=== PATIENT | female | born 1990 | race Caucasian/White ===

== ENCOUNTER 2019-01-03 21:12 | Emergency (ER) | payer OTHER ==
[~2019-01-03] VITALS: Ht 154.9 cm; Wt 59.0 kg
[2019-01-03 21:30] VITALS: BP 131/82
[2019-01-03] MEDS ORDERED: SERTRALINE HCL50 MG PO (21:36)
[2019-01-03] MEDS ORDERED: CLONAZEPAM 1 MG1 M1 PO (21:36)
== END 2019-01-03 21:45 | disposition home or self-care (01) ==
LOC: M.ERS 21:12
DX: F41.9 Anxiety disorder, unspecified (principal); F17.200 Nicotine dependence, unspecified, uncomplicated; F32.9 Major depressive disorder, single episode, unspecified